=== PATIENT | male | born 2000 | race Caucasian/White ===

== ENCOUNTER → 2022-05-29 | Outpatient (CLI) | payer BC, SELFPAY ==
--- NOTE | 2022-05-28 09:15 | MRI_ITS ---
INDICATION: RIGHT femur rupture of rectus femoris tendon EXAMINATION: MRI - LEFT MR Femur W/O Contrast TECHNIQUE: Multiplanar and multisequence MR images of the LEFT foot. IV Contrast Dosage and Agent: None. COMPARISON: None. FINDINGS: There is interstitial tear of the proximal myotendinous junction of the rectus femoris without liquefied hematoma. The tendon is attached proximally to the anterior inferior iliac spine. Remainder of the right thigh musculature is normal. Right hip is intact and located. Marrow is normal. MRI/Lower Ext/No Jt/w/o IMPRESSION: Low-grade proximal myotendinous junction interstitial tear of the rectus femoris without femoral detachment or liquefied hematoma. Electronically Signed: Richard Hernandez MD at 15:33 EST ,
== END | disposition home or self-care (01) ==
PROVIDERS: Visit Provider Orthopaedic Surgery
DX: S76.811A Strain of other specified muscles, fascia and tendons at thigh level, right thigh, initial encounter (principal)
CPT/HCPCS: 73718

== ENCOUNTER → 2022-08-03 | Outpatient (CLI) | payer BC, SELFPAY ==
[2022-08-03 16:26] LABS: AST(SGOT) 33 U/L (15-37); Alanine Aminotransfer ALT/SGPT 33 U/L (16-61); Cholesterol 199 mg/dL (200); High Density Lipoprotein 76 mg/dL; Triglycerides 64 mg/dL; Very Low Density Lipoprotein 13 mg/dL (5-40)
== END | disposition home or self-care (01) ==
LOC: MTLAB 11:36
PROVIDERS: Referring Provider Physician Assistant Medical; Visit Provider Physician Assistant Medical
DX: L70.0 Acne vulgaris (principal); Z79.899 Other long term (current) drug therapy
CPT/HCPCS: 36415; 80061; 84450; 84460